=== PATIENT | female | born 1950 | race Caucasian/White ===

== ENCOUNTER 2017-03-24 22:28 | Emergency (ER) | payer MEDICARE ==
[~2017-03-24] VITALS: Ht 167.6 cm; Wt 93.0 kg
[2017-03-24 22:39] VITALS: BP 180/91; PULSE 77; RESP 16; TEMP 97.9
--- NOTE | 2017-03-24 23:12 | PD ---
HPI Chief Complaint: ENT Complaint Time Seen by Provider: 23:05 Travel History International Travel<30 days: No Contact w/Intl Traveler<30days: No Traveled to known affect area: No History of Present Illness HPI 66-year-old female came to the emergency room with history of sore throat that started in the afternoon. There has been some sick contact at work. Patient says it really hurts when she tries to swallow and it's getting worse. He tried to drink some tea with honey examine but didn't help. The pain seems to be radiating out to both years. No history of fever or chills. Vital signs were stable in the triage. She is able to handle her secretions and breathe okay. [facility] Past Medical History Narrative Medical List of her past medical, surgical, social and family history is reviewed from the nursing note. Social History Tobacco Use: No Allergies-Medications (Allergen,Severity, Reaction): Coded Allergies: No Known Drug Allergies (Verified Allergy, Unknown, 03/24/17) Comments No known drug allergies. Reported Meds & Prescriptions Reported Meds & Active Scripts Active No Active Prescriptions or Reported Medications Narrative Medication List of her home medications reviewed from the nursing note. Review of Systems Except as stated in HPI: all other systems reviewed are Neg HENT: Positive: Sore Throat Physical Exam Narrative GENERAL: Awake, alert, mild distress SKIN: Focused skin assessment warm/dry. HEAD: Atraumatic. Normocephalic. EYES: Pupils equal and round. No scleral icterus. No injection or drainage. ENT: No nasal bleeding or discharge. Mucous membranes pink and moist. Erythematous pharynx. No exudates. Uvula look swollen NECK: Trachea midline. No JVD. CARDIOVASCULAR: Regular rate and rhythm. No murmur appreciated. RESPIRATORY: No accessory muscle use. Clear to auscultation. Breath sounds equal bilaterally. GASTROINTESTINAL: Abdomen soft, non-tender, nondistended. Hepatic and splenic margins not palpable. MUSCULOSKELETAL: No obvious deformities. No clubbing. No cyanosis. No edema. NEUROLOGICAL: Awake and alert. No obvious cranial nerve deficits. Motor grossly within normal limits. Normal speech. PSYCHIATRIC: Appropriate mood and affect; insight and judgment normal. Data Data Last Documented VS Vital Signs Date Time Temp Pulse Resp B/P (MAP) Pulse Ox O2 Delivery O2 Flow Rate FiO2 1/27/18 00:20 78 18 98 03/24/17 22:39 97.9 180/91 (120) Orders Orders Ibuprofen (Motrin) (03/24/17 23:30) Group A Rapid Strep Screen (03/24/17 23:16) Dexamethasone (Decadron) (03/24/17 23:30) Strep Culture (Group A) (03/24/17 23:35) Ed Discharge Order (03/24/17 23:58) MDM Medical Decision Making Medical Screen Exam Complete: Yes Emergency Medical Condition: Yes Medical Record Reviewed: Yes Differential Diagnosis Strep pharyngitis, viral illness Narrative Course 12 AM patient was given a dose of Decadron and Motrin. Rapid strep is negative. I'll discharge her home. Procedures EKG Prior to Arrival: No Diagnosis Primary Impression: Viral illness Additional Impression: Sore throat Referrals: Primary Care Physician Additional Instructions: Take ibuprofen/Motrin/Advil for pain. Drink warm he with honey and lemon. Follow-up with primary care in couple days. Return to ER if condition worsens or any other new concerns. Med/Other Pt SpecificInfo: No Change to Meds Scripts No Active Prescriptions or Reported Meds Disposition: 01 DISCHARGE HOME Condition: Stable Ronak Padilla MD Mar 24, 2017 23:12
[2017-03-24] MEDS ORDERED: DEXAMETHASONE 6 MG TAB PO ONE (23:30)
[2017-03-24] MEDS ORDERED: IBUPROFEN 600 MG TAB PO ONE (23:30)
[2017-03-24] MEDS ORDERED: DEXAMETHASONE 1.5 MG TAB PO ONE (23:30)
== END 2017-03-25 00:21 | disposition home or self-care (01) ==
LOC: PHED 22:28
DX: B34.9 Viral infection, unspecified (principal); J02.9 Acute pharyngitis, unspecified
CPT/HCPCS: 87081; 87880; 99283; J8540